=== PATIENT | female | born 1955 | race Caucasian/White ===

== ENCOUNTER 2023-11-10 14:02 | Outpatient (CLI) | payer MEDICARE, OTHER, SELFPAY | END 2023-11-10 14:03 | disposition home or self-care (01) | LOC: INJ CL 14:05 | PROVIDERS: PCP Internal Medicine; Visit Provider Family Medicine | DX: M17.12 Unilateral primary osteoarthritis, left knee (principal); M25.562 Pain in left knee | CPT/HCPCS: 64454 ==

== ENCOUNTER 2023-12-15 13:11 | Outpatient (CLI) | payer MEDICARE, OTHER, SELFPAY ==
--- OUTSIDE RECORDS SUMMARY | 2023-12-15 13:13 | XMS_ITS | Clinical Summary ---
Author Name Unknown Organization [facility] Address [place], [place] [address] Care Team Providers Care Topographical Drafter Name Role Phone Madeline Kraft DO Primary Care Provider [phone] Nicolette Linares INTERACTIVE DEVELOPER Unavailable Allergies Active Allergy Reactions Criticality Noted Date Comments Atenolol Chest Pain Medium 02/11/2012 Hymenoptera Allergenic Extract Hives High 09/29/2006 Bee Venom Protein (Honey Bee) Hives Low 03/22/2015 Ketamine Confusion,Sedation High 12/27/2020 Nitrofurantoin Nausea Only,Stomach Upset High 07/09/2022 Aspartame GI Upset,Headache High 09/29/2006 Saccharin Other - Describe In Comment Field Low 12/23/2018 Nausea Sucralose Other - Describe In Comment Field Low 12/23/2018 nausea Sulfa (Sulfonamide Antibiotics) Itching Low 03/03/2022 Venom-Honey Bee Hives Low 09/16/2023 Cholecalciferol (Vitamin D3) Myalgia High 12/14/2017 VITAMIN D CAUSING MUSCLE AND JOINT PAIN Medications Medication Sig Dispensed Refills Start Date End Date Status aspirin enteric coated 81 mg tablet Take 1 tablet by mouth once daily with a meal. 0 04/19/20 13 Active blood-glucose meterIndications: Diabetes mellitus without complication (HC) Dispense meter, test strips, lancets covered by pt ins. E11.65 NIDDM type II, uncontrolled - Test 3 times/day, Reason: High A1C 1 Device 0 06/07/20 18 Active blood sugar diagnostic (BLOOD GLUCOSE TEST) stripIndications: Diabetes mellitus without complication (HC) Test 3 times per day. Diabetes melliltus type II, uncontrolled. High A1c. 300 Each 3 06/07/20 18 Active lancetsIndication s:Diabetes mellitus without complication (HC) Test 3 times per day. DIABETES MELLILTUS TYPE II, uncontrolled. 300 Each 3 06/07/20 18 Active cyanocobalamin (VITAMIN B12) 500 mcg tablet Take 500 mcg by mouth once daily. 0 12/16/19 19 Active lidocaine 4% (ASPERCREME) 4 % patch Apply 1 Patch on dry, clean, hairless skin once daily if needed. 0 06/13/20 20 Active sennosides-docusa te (SENOKOT S) (8.6-50 mg) tablet Take 1 Tablet by mouth at bedtime. 0 10/19/20 20 Active acetaminophen (TYLENOL) 325 mg tablet Take 2 tablets by mouth every 6 hours if needed. Max acetaminophen dose: 4000mg in 24 hrs. 0 10/19/20 20 Active multivitamins with minerals tablet Take 1 Tablet by mouth once daily. 0 10/17/20 20 Active durable medical equipment (DME)Indications: Heel ulcer, left, limited to breakdown of skin (HC) podous boot, XL, Gipsy, Ref: [id number] 1 Each 0 04/11/20 21 Active amoxicillin (AMOXIL) 500 mg tabletIndications :Need for prophylactic antibiotic Take 4 tabs 1 hour prior to dental procedure. 4 Tablet 4 04/12/20 21 Active omeprazole 20 mg tablet Take 1 Tablet (20 mg) by mouth once daily before a meal. 0 06/21/20 21 Active magnesium oxide (MAG-OX 400) 400 mg tablet Take 400 mg by mouth 2 times daily. 60 Capsule 0 06/21/20 21 Active Biotin 1 mg tablet Take 1 mg by mouth once daily. 0 Active diclofenac topical (VOLTAREN) 1 % gel Apply 2 g topically to affected area(s) once daily if needed. 0 Active folic acid 1 mg tabletIndications :Chronic osteomyelitis of left femur (HC) TAKE 1 TABLET BY MOUTH EVERY DAY 90 Tablet 3 09/03/20 21 Active durable medical equipment (DME)Indications: Heel ulcer, left, limited to breakdown of skin (HC) PODOUS BOOT, XL, UNIVERSAL, REF: [id number] 1 Each 0 09/04/20 21 Active FreeStyle Corey 2 ReaderIndications :Diabetes mellitus without complication (HC) To be used to read blood sugars per linen checker's directions. 1 Each 0 09/26/20 21 Active FreeStyle Corey 2 SensorIndications :Diabetes mellitus without complication (HC) Change sensor every 14 days 6 Each 3 09/26/20 21 Active miscellaneous medical supply miscIndications:P ressure injury of buttock, stage 2, unspecified laterality (HC) As directed. Allan Jeffrey. Diagnosis: pressure ulcer of buttocks, stage 2. 1 Each 0 11/18/19 22 Active L.acid/B.animalis ,bifidum/FOS (PROBIOTIC COMPLEX ORAL) Take 1 Capsule by mouth at bedtime. 0 Active durable medical equipment (DME)Indications: Diabetic ulcer of left heel associated with type 2 diabetes mellitus, with fat layer exposed (HC) AIR SELECT, SHORT, MEDIUM, REF: [id number] 1 Each 0 03/13/20 22 Active furosemide (LASIX) 20 mg tabletIndications :Hypertension, unspecified type Take 3 Tablets (60 mg) by mouth every morning. 270 Tablet 2 07/24/20 22 Active fosfomycin tromethamine (MONUROL) 3 gram pack packetIndications :Multiple drug resistant organism (MDRO) culture positive,Complica abelardo UTI (urinary tract infection) Mix 1 packet (3 g) in liquid then take by mouth every 72 hours x3 doses. 3 Packet 0 01/15/20 23 Active Additional Information Patient not taking.Reported on 10/12/2023 Insulin [place], Disposable, (bd insulin pen needle uf mini) 31 gauge x /16Indications: Diabetes mellitus without complication (HC) Remove the 2 covers on the insulin pen needle before administering insulin dose. 100 Each 3 03/12/20 23 Active potassium chloride (K-TAB) 10 mEq extended-release tabletIndications :Hypokalemia Take 3 Tablets (30 mEq) by mouth once daily. 270 Tablet 2 03/12/20 23 Active gabapentin (NEURONTIN) 400 mg capsuleIndication s:Neuropathy TAKE 1 CAPSULE(400 MG) BY MOUTH in the morning, 1 cap in the afternoon and 2 caps at bedtime. 360 Capsule 3 03/12/20 23 Active estradioL (ESTRACE) 0.01% (0.1 mg/g) vaginal creamIndications: Recurrent UTI,Atrophic vaginitis Insert 1 g into the vagina every Thursday, Thursday and Thursday. 42.5 g 6 03/13/20 23 Active Additional Information Patient not taking.Reported on 10/12/2023 methenamine hippurate (HIPREX) 1 gram tabletIndications :Recurrent UTI,Atrophic vaginitis Take 1 Tablet (1 g) by mouth two times daily. 60 Tablet 6 03/12/20 23 Active alendronate (FOSAMAX) 70 mg tabletIndications :Osteopenia, unspecified location TAKE 1 TABLET(70 MG) BY MOUTH 1 TIME A WEEK IN THE MORNING ON AN EMPTY STOMACH AND WITH FULL GLASS OF WATER. DO NOT LIE DOWN FOR 1 HOUR 13 Tablet 2 04/11/20 23 Active vibegron (Gemtesa) 75 mg tabletIndications :Functional urinary incontinence Take 1 Tablet (75 mg) by mouth once daily. 30 Tablet 3 05/14/20 23 Active Additional Information Patient not taking.Reported on 10/12/2023 durable medical equipment (DME)Indications: Arthritis of left knee,Chronic pain of left knee,History of femur fracture,Sprain of medial collateral ligament of left knee, initial encounter Reddie knee brace, left knee, XXXL 1 Each 0 06/15/20 23 Active fluconazole (DIFLUCAN) 150 mg tabletIndications :Vaginal candidiasis Take 1 Tablet (150 mg) by mouth once daily. Repeat in 3 days if needed. 2 Tablet 0 07/15/20 23 Active nystatin (MYCOSTATIN) creamIndications: Intertriginous candidiasis Apply topically to affected area(s) two times daily. 30 g 2 07/15/20 23 Active metoprolol tartrate (LOPRESSOR) 25 mg tabletIndications :Hypertension TAKE 1/2 TABLET(12.5 MG) BY MOUTH TWICE DAILY 90 Tablet 1 09/06/20 23 Active dexAMETHasone (DECADRON) 6 mg tablet 0 09/03/20 23 Active traMADoL (ULTRAM) 50 mg tabletIndications :Chronic pain due to trauma TAKE 2 TABLETS(100 MG) BY MOUTH FOUR TIMES DAILY NEEDED FOR PAIN 180 Tablet 0 10/13/20 23 Active insulin degludec, U-200, (Tresiba FlexTouch U-200) 200 unit/mL (3 mL) penIndications:Di abetes mellitus without complication (HC) ADMINISTER 110 UNITS UNDER THE SKIN EVERY DAY 48 mL 1 10/13/20 23 Active metFORMIN (GLUCOPHAGE) 500 mg tabletIndications :Diabetes mellitus without complication (HC) Take 2 Tablets (1,000 mg) by mouth two times daily with meals. 360 Tablet 1 10/13/20 23 Active warfarin (COUMADIN) 5 mg tabletIndications :S/P AVR (aortic valve replacement),Anti coagulation monitoring, INR range 2-3 Take by mouth 2/1: Hold; 2/2: Hold; 2/3: Hold; 2/4: Hold; 2/5: Hold; Otherwise 5 mg every Mon, Wed, Fri; 7.5 mg all other days in the evening OR as directed 0 11/26/19 24 Active levothyroxine (SYNTHROID) 200 mcg tabletIndications :Hypothyroidism due to acquired atrophy of thyroid TAKE 1 TABLET(200 MCG) BY MOUTH BEFORE BREAKFAST 90 Tablet 0 12/07/19 24 Active levothyroxine (SYNTHROID) 50 mcg tabletIndications :Hypothyroidism due to acquired atrophy of thyroid TAKE 1 TABLET(50 MCG) BY MOUTH BEFORE BREAKFAST 90 Tablet 0 12/07/19 24 Active levothyroxine (SYNTHROID) 200 mcg tabletIndications :Hypothyroidism due to acquired atrophy of thyroid TAKE 1 TABLET(200 MCG) BY MOUTH BEFORE BREAKFAST 60 Tablet 0 09/06/20 23 024 Discontinued levothyroxine (SYNTHROID) 50 mcg tabletIndications :Hypothyroidism due to acquired atrophy of thyroid TAKE 1 TABLET(50 MCG) BY MOUTH BEFORE BREAKFAST 30 Tablet 0 09/22/20 23 024 Discontinued warfarin (COUMADIN) 5 mg tabletIndications :S/P AVR (aortic valve replacement),Anti coagulation monitoring, INR range 2-3 Take by mouth 5 mg (5 mg x 1) every Mon, Wed, Thu; 7.5 mg (5 mg x 1.5) all other days in the evening OR as directed 38 Tablet 0 11/12/19 24 024 Discontinued(Re order (E-cancel not sent)) Active Problems Problem Noted Date Diagnosed Date Left knee pain 03/24/2023 Diabetic ulcer of left heel associated with type 2 diabetes mellitus, with fat layer exposed 03/15/2023 Chemotherapy-induced neuropathy 10/21/2022 Multiple drug resistant organism (MDRO) culture positive 07/29/2022 Infection due to ESBL-producing Escherichia coli 07/29/2022 Allergy to multiple antibiotics 07/29/2022 Wound of foot 03/04/2022 Eczema of scalp 03/04/2022 Septic shock due to urinary tract infection 02/08 Fatty infiltration of liver 08/16/2021 Need for prophylactic antibiotic 04/12/2021 Iron deficiency anemia due to chronic blood loss 03/20/2021 Refusal of statin medication by patient 01/08/20 21 Severe sepsis 08/07/2020 UTI (urinary tract infection) 08/07/2020 Tachycardia 08/07/2020 Refused influenza vaccine 08/01/2019 Controlled substance agreement signed 05/02/2019 Overview: Tramadol 50 mg 2 tabs three times daily. #180 per month. Patient unable to leave a urine sample currently due to being in a wheelchair and with the COVID-19 outbreak. Will reevaluate in 2 months (April 2020). Medication side effects 07/05/2017 Breast cancer of upper-outer quadrant of right female breast 04/28/2017 Breast hematoma 04/28/2017 Osteopenia 04/28/2017 Neuropathy 08/16/2015 Abscess of right breast 06/21/2015 Lung nodule 06/13/2015 Humerus fracture 05/12/2015 Intractable pain 05/12/2015 C. difficile diarrhea 04/06/2015 Chronic anticoagulation 09/21/2014 Aortic valve prosthesis present 06/06/2013 Anticoagulation monitoring, INR range 2-3 2012 ACP (advance care planning) 05/06/2013 Overview: Patient has identified Health Care Agent(s): No formally appointed agents but identified spouse as primary concerned: Chip Vasquez [phone] Add Health Care Agents: No Patient has Advance Care Plan Documents (Health Care Directive, POLST): No, Health Care Packet given to patient. Patient has identified Specific Treatment Preferences: No Specific limits to treatment preferences NOT identified: ASSUME FULL TREATMENT. S/P AVR (aortic valve replacement) 05/05/2013 Overview: Aortic valve replacement; 21 mm, [employer] HP mechanical valve. BRYAN FERRER MD Elevated LFTs 10/22/2011 Vitamin D deficiency 08/21/2009 OA (osteoarthritis) of knee 08/07/2008 Encounter for long-term (current) use of other m edications 08/13/2007 Hypothyroidism due to acquired atrophy of thyroi d 09/29/2006 Hyperlipidemia 09/29/2006 Hypertension 09/29/2006 Obesity, unspecified 09/29/2006 DIABETES MELLITUS TYPE II A1C> 8 09/28/2006 Resolved Problems Problem Noted Date Diagnosed Date Resolved Date Chronic osteomyelitis of left femur 08/08/2020 10/21/2022 Acute type 1 respiratory failure 08/07/2020 10/21/2022 Malignant neoplasm of right breast 05/12/2015 04/28/2017 Hyperglycemia 05/12/2015 07/05/2017 Malignant neoplasm of upper- outer quadrant of female breast 04/12/2015 01/18/2018 Breast cancer, right breast 09/13/2014 04/28/2017 Fatigue 04/15/2014 05/12/2015 Breast cyst 05/20/2013 12/07/2014 Aortic stenosis, severe 04/17/201305/09 Heartburn 09/04/2012 05/12/2015 Henoch-Schonlein purpura 10/19/2010 Heart murmur 07/01/2010 05/20/2013 Trigger finger (acquired) 11/26/2008 Overview: R index Nosebleed 07/27/2008 11/10/2011 Hypopotassemia 08/20/2007 05/20/2013 Encounters Date Type Department Care Team Description 12/14/[address] [address] Madeline Kraft DO Anticoagulation (Annual re-enrollment ) 12/05/[address] [address] Madeline Kraft DO Refill Request (Levothyroxine, Levothyroxine) 11/26/2023 3:50 PM LICENSED MASSAGE PRACTITIONER [address] [address] Lab, [facility] 11/26/2023 Anticoagulation (warfarin) [address] [place] [address] 1, [facility] Anticoagulation 11/26/2023 Travel 11/19/2023 Telephone [facility] [address] [place] [address] Nicolette Linares NP Appointment 11/18/2023 Anticoagulation (warfarin) [facility] [address] [place] [address] Madeline Kraft DO Error-please disregard (opened in error) 11/18/2023 Telephone [facility] [address] [place] [address] Madeline Kraft DO Anticoagulation (12/15/2023 Coolief procedure Left knee ) 11/17/2023 4:10 PM LICENSED MASSAGE PRACTITIONER Orders Only [facility] [address] [place] [address] Lab, [facility] 11/17/2023 Anticoagulation (warfarin) [facility] [address] [place] [address] 1, [facility] Anticoagulation 11/17/2023 Travel 11/12/2023 Telephone [facility] [address] [place] [address] Madeline Kraft DO Anticoagulation (Due for INR check/Warfarin refill) 11/10/2023 3:00 PM LICENSED MASSAGE PRACTITIONER Procedure Only [facility] [address] [place] [address] Kamar Zamora MD Procedure (Left knee genicular nerve block ) 11/10/2023 Travel 10/13/2023 Telephone [facility] [address] [place] [address] Nicolette Linares NP Appointment 10/13/[address] [address] Kamar Zamora MD Appointment (Reschedule) 10/12/2023 2:30 PM LICENSED MASSAGE PRACTITIONER Phone Office Visit [facility] [address] [place] [phone] Nicolette Linares NP Follow Up (Malignant neoplasm of upper-outer quadrant of right female breast, unspecified estrogen receptor status) 10/12/2023 Travel 10/12/2023 Telephone [facility] [address] [place] [address] Nicolette Linares, NEGRITA Appointment 10/12/2023 Refill [facility] [address] [place] [address] Madeline Kraft, Refill Request (Metformin, Tramadol, Tresiba Flextouch U-200) 10/08/2023 2:57 PM LICENSED MASSAGE PRACTITIONER - 10/08/2023 11:59 PM LICENSED MASSAGE PRACTITIONER Hospital Encounter [facility] [address] [place] [address] Malignant neoplasm of upper-outer quadrant of right female breast, unspecified estrogen receptor status (HC) [C50.411 (ICD-10-CM)]; Iron deficiency anemia due to chronic blood loss; S/P AVR (aortic valve replacement); Anticoagulation monitoring, INR range 2-3 10/08/2023 Anticoagulation (warfarin) [facility] [address] [place] [phone] , [facility] Anticoagulation 10/08/2023 Travel 10/08/[address] [address] Kamar Zamora MD Medication Management (warfarin (COUMADIN) 5 mg tablet) 10/08/2023 Refill [facility] [address] [place] [phone] Madeline Kraft DO Refill Request (Tramadol, Tresiba Flextouch U-200) 09/25/2023 Telephone [facility] [address] [place] [address] Nicolette Linares NP Appointment 09/22/[address] [address] Madeline Kraft DO Refill Request (Levothyroxine) 09/21/[address] [address] Madeline Kraft DO Refill Request (Levothyroxine) 09/16/2023 4:10 PM LICENSED MASSAGE PRACTITIONER Orders Only [address] [address] Lab, [facility] 09/16/2023 3:30 PM LICENSED MASSAGE PRACTITIONER Nurse/Clinic Staff Only [address] [address] Nurse/Clinic Staff Only (Wound check) 09/16/2023 2:40 PM LICENSED MASSAGE PRACTITIONER Phone Office Visit [address] [address] Madeline Kraft DO Diabetes (Patient is in [place] and has lab appt this afternoon) 09/16/2023 Anticoagulation (warfarin) [address] [address] , [facility] Anticoagulation (Provider Visit) 09/16/2023 Travel 09/14/2023 Telephone [facility] [address] [place] [address] Kamar Zamora MD Injection (Medication) 09/14/[address] [address] Madeline Kraft DO Anticoagulation (Due for INR); Follow Up (patient return call ) from Last 3 Months Immunizations Name Administration Dates Next Due COVID-19 vaccine (Timeet 30mcg/0.3mL) P FMDV 10/30/2021,09/26/2021 Pneumococcal Poly,23-Valent (Pneumovax) 03/13/20,10/09/2000 TD, UNSPECIFIED 10/09/2000 Td (Age >=7 Years) 10/09/2000 Tdap 11/10/2011 Tuberculin (PPD) 09/22/2020,09/08/2020 Zoster (Shingrix-RZV, recombinant) 03/13/2022 Family History Medical History Relation Name Comments Heart Disease Father bypass surgery Cancer-breast Maternal Aunt Cancer Mother Other Mother diverticulitis Diabetes Other grandparents Other Sister 2 blood disorder TTP Good Health Son x3 Relation Name Status Comments Father Maternal Aunt Mother Other Sister 1 blood disorder TTP Sister 2 Son Social History Tobacco Use Types Packs/Day Years Used Date Smoking Tobacco: Never Smokeless Tobacco: Never Tobacco Cessation:Counseling Given: Yes Alcohol Use Standard Drinks/Week Comments Not Currently 0 (1 standard drink = 0.6 oz pur e alcohol) PHQ-2 Answer Date Recorded PHQ-2 TOTAL SCORE 4 12/27/2020 Social Connections Answer Date Recorded Frequency of Communication with Friends and Fami ly 0 03/12/2023 Financial Resource Strain Answer Date R ecorded Difficulty of Paying Living Expenses 3 03/12/2023 Difficulty of Paying Living Expenses Not on file 03/12/2023 Food Insecurity Answer Date Recorded Worried About Running Out of Food in the Last Ye ar 1 03/12/2023 Transportation Needs Answer Date Record ed Lack of Transportation (Medical) 1 03/12/2023 Housing Stability Answer Date Recorded Unable to Pay for Housing in the Last Year 1 03/12/2023 Sex and Gender Information Value Date Recorded Sex Assigned at Not on file Gender Identity Not on file Sexual Orientation Not on file Obstetrics History Para Term AB IAB SAB Ectopic Multiple Livin g Live Births 3 3 3 Date Outcome GA Total Labor Labor/2nd/3rd Weight Sex Delivery Anes PTL Marisabel A1 A5 Name Cl in Para M Para M Para M Last Filed Vital Signs Vital Sign Reading Time Taken Comments Blood Pressure 138/74 08/20/2023 2:13 PM CDT Pulse 90 08/20/2023 2:13 PM CDT Temperature 36.8 ??C (98.3 ??F) 08/20/2023 2:13 PM CD T Respiratory Rate 18 05/29/2023 3:16 PM CDT Oxygen Saturation 97% 08/20/2023 2:13 PM CDT Inhaled Oxygen Concentration - - Weight 113.9 kg (251 lb 3.2 oz) 03/03/2022 8:52 PM CDT bed scale Height 162.6 cm (5' 4) 09/26/2021 4:42 PM LICENSED MASSAGE PRACTITIONER Body Mass Index 43.12 09/26/2021 4:42 PM LICENSED MASSAGE PRACTITIONER Plan of Treatment Upcoming Encounters Date Type Department Care Team (Late st Contact Info) Description 12/15/2023 2:00 PM LICENSED MASSAGE PRACTITIONER Procedure Only [facility] [address] [place] [address] Kamar Zamora MD [address] [place] [address] Arrived 12/18/2023 4:00 PM LICENSED MASSAGE PRACTITIONER Office Visit [facility] [address] [place] [address] Madeline Kraft DO [address] [place] [address] 01/11/2024 4:00 PM LICENSED MASSAGE PRACTITIONER Appointment [facility] [address] [place] [address] 01/13/2024 3:15 PM LICENSED MASSAGE PRACTITIONER Office Visit [facility] [address] [place] [address] Nicolette Linares, INTERACTIVE DEVELOPER [address] [place] [address] Health Maintenance Due Date Last Done Comments Colonoscopy through age 75 2002 BMI (ht and wt on same day) for age 18+ 05/03/2021 05/03/2020, 08/01/2019, 01/26/2019, Additional history exists Tetanus booster 11/10/2021 11/10/2011, 12/2011, 10/10/2011 (Declined), Additional history exists COVID-19 vaccine series (3 - Pfizer risk series) 11/27/2021 10/30/2021, 09/26/2021 Depression screening for age 12+ 12/31/2021 12/31/2020, 12/31/2020, 12/31/2020, Additional history exists DEXA/DXA scan for age 65+ 04/26/20222018, 04/27/2017, 04/09/2015 Medicare Wellness for age 65+ 2022 Zoster (shingles) series for age 50+ (2 of 2) 05/08/2022 03/13/2022 Pneumococcal series for age 65+ (3 of 3 - PCV) 03/13/2023 03/13/2022, 10/09/2000 Influenza for age 65+ 07/10/2023 Mammogram for age 45-75 05/15/2024 05/15/20, 05/28/2022, 05/07/2022, Additional history exists Lipids for age 45-75 09/16/2028 09/16/2023, 10/20/2022, 07/22/2022, Additional history exists Tdap Completed 11/10/2011 Hepatitis C screening for ag e 18-79 Completed 09/26/2021 Medical Devices Implanted Type Area Track Grinder Operator Device Identifier Shelf Expiration Date Model / Serial / Lot Anw Hh [id number] Implanted:Qty: 1 on 05/05/2013 at [facility] [employer] 08/16/2014 [id number] # / [id number] / [id number] - [id number] Implanted:Qty: 1 on 10/24/2014 by Victor M Olivares MD at [facility] [employer] 04/09/2016 [id number] / / [id number] Description:Power Port Procedures Procedure Name Priority Date/Time Associated Diagnosis Comments CBC WITH AUTO DIFFERENTIAL Routine 11/26/2023 3:26 PM LICENSED MASSAGE PRACTITIONER Iron deficiency anemia due to chronic blood loss IRON PLUS IRON BINDING CAP Routine 11/26/2023 3:26 PM LICENSED MASSAGE PRACTITIONER Iron deficiency anemia due to chronic blood loss FERRITIN Routine 11/26/2023 3:26 PM LICENSED MASSAGE PRACTITIONER Iron deficiency anemia due to chronic blood loss CBC WITH AUTO DIFFERENTIAL Routine 11/26/2023 3:26 PM LICENSED MASSAGE PRACTITIONER Iron deficiency anemia due to chronic blood loss PROTIME-INR STAT 11/26/2023 3:26 PM LICENSED MASSAGE PRACTITIONER S/P AVR (aortic valve replacement) Anticoagulation monitoring, INR range 2-3 PROTIME-INR STAT 11/17/2023 3:53 PM LICENSED MASSAGE PRACTITIONER S/P AVR (aortic valve replacement) Anticoagulation monitoring, INR range 2-3 RED CELL MORPHOLOGY Timed 10/08/2023 3 :07 PM LICENSED MASSAGE PRACTITIONER Malignant neoplasm of upper-outer quadrant of right female breast, unspecified estrogen receptor status (HC) [C50.411 (ICD-10-CM)] Iron deficiency anemia due to chronic blood loss PLATELET ESTIMATE Timed 10/08/2023 3:0 7 PM LICENSED MASSAGE PRACTITIONER Malignant neoplasm of upper-outer quadrant of right female breast, unspecified estrogen receptor status (HC) [C50.411 (ICD-10-CM)] Iron deficiency anemia due to chronic blood loss PROTIME-INR STAT 10/08/2023 3:07 PM LICENSED MASSAGE PRACTITIONER S/P AVR (aortic valve replacement) Anticoagulation monitoring, INR range 2-3 CBC WITH AUTO DIFFERENTIAL Timed 10/08/2023 3:07 PM LICENSED MASSAGE PRACTITIONER Malignant neoplasm of upper-outer quadrant of right female breast, unspecified estrogen receptor status (HC) [C50.411 (ICD-10-CM)] Iron deficiency anemia due to chronic blood loss IRON PLUS IRON BINDING CAP Today 10/08/2023 3:07 PM LICENSED MASSAGE PRACTITIONER Malignant neoplasm of upper-outer quadrant of right female breast, unspecified estrogen receptor status (HC) [C50.411 (ICD-10-CM)] Iron deficiency anemia due to chronic blood loss RETICULOCYTES Today 10/08/2023 3:07 PM LICENSED MASSAGE PRACTITIONER Malignant neoplasm of upper-outer quadrant of right female breast, unspecified estrogen receptor status (HC) [C50.411 (ICD-10-CM)] Iron deficiency anemia due to chronic blood loss FERRITIN Today 10/08/2023 3:07 PM LICENSED MASSAGE PRACTITIONER Malignant neoplasm of upper-outer quadrant of right female breast, unspecified estrogen receptor status (HC) [C50.411 (ICD-10-CM)] Iron deficiency anemia due to chronic blood loss COMP METABOLIC PANEL Today 10/08/2023 3:07 PM LICENSED MASSAGE PRACTITIONER Malignant neoplasm of upper-outer quadrant of right female breast, unspecified estrogen receptor status (HC) [C50.411 (ICD-10-CM)] Iron deficiency anemia due to chronic blood loss CBC WITH AUTO DIFFERENTIAL Today 10/08/2023 3:07 PM LICENSED MASSAGE PRACTITIONER Malignant neoplasm of upper-outer quadrant of right female breast, unspecified estrogen receptor status (HC) [C50.411 (ICD-10-CM)] Iron deficiency anemia due to chronic blood loss RED CELL MORPHOLOGY Routine 09/16/2023 4 :59 PM LICENSED MASSAGE PRACTITIONER DIABETES MELLITUS TYPE II A1C> 8 PLATELET ESTIMATE Routine 09/16/2023 4:5 9 PM LICENSED MASSAGE PRACTITIONER DIABETES MELLITUS TYPE II A1C> 8 CBC WITH AUTO DIFFERENTIAL Routine 09/16/2023 4:59 PM LICENSED MASSAGE PRACTITIONER DIABETES MELLITUS TYPE II A1C> 8 LIPID PANEL W REFLEX MEASURED LDL Routine 09/16/2023 4:59 PM LICENSED MASSAGE PRACTITIONER Hyperlipidemia, unspecified hyperlipidemia type TSH WITH REFLEX Routine 09/16/2023 4:59 PM LICENSED MASSAGE PRACTITIONER Hypothyroidism due to acquired atrophy of thyroid COMP METABOLIC PANEL Routine 09/16/2023 4:59 PM LICENSED MASSAGE PRACTITIONER Hypertension DIABETES MELLITUS TYPE II A1C> 8 CBC WITH AUTO DIFFERENTIAL Routine 09/16/2023 4:59 PM LICENSED MASSAGE PRACTITIONER DIABETES MELLITUS TYPE II A1C> 8 HEMOGLOBIN A1C Routine 09/16/2023 4:59 PM LICENSED MASSAGE PRACTITIONER DIABETES MELLITUS TYPE II A1C> 8 PROTIME-INR STAT 09/16/2023 4:59 PM LICENSED MASSAGE PRACTITIONER S/P AVR (aortic valve replacement) Anticoagulation monitoring, INR range 2-3 from Last 3 Months Results * (ABNORMAL) CBC WITH AUTO DIFFERENTIAL (11/26/2023 3:26 PM [facility]) Only the most recent of3 resultswithin the time period is included. WHITE BLOOD COUNT 9.5 4.5 - 11.0 thou/cu mm 11/26/2023 3:38 PM [facility] RED BLOOD COUNT 4.86 4.00 - 5.20 mil/cu mm 11/26/2023 3:38 PM [facility] HEMOGLOBIN 10.3(L) 12.0 - 16.0 g/dL 11/26/2023 3:38 PM [facility] HEMATOCRIT 34.3 33.0 - 51.0 % 11/26/2023 3:38 PM [facility] MCV 71(L) 80 - 100 fL 11/26/2023 3:38 PM [facility] MCH 21.2(L) 26.0 - 34.0 pg 11/26/2023 3:38 PM [facility] MCHC 30.0(L) 32.0 - 36.0 g/dL 11/26/2023 3:38 PM [facility] RDW 18.5(H) 11.5 - 15.5 % 11/26/2023 3:38 PM [facility] PLATELET COUNT 147 140 - 440 thou/cu mm 11/26/2023 3:38 PM [facility] MPV 10.0 6.5 - 11.0 fL 11/26/2023 3:38 PM [facility] % NEUT 78.5 % 11/26/2023 3:38 PM [facility] % LYMPH 13.0 % 11/26/2023 3:38 PM [facility] % MONO 7.3 % 11/26/2023 3:38 PM [facility] % EOS 0.9 % 11/26/2023 3:38 PM [facility] % BASO 0.3 % 11/26/2023 3:38 PM [facility] ABSOLUTE NEUTROPHILS 7.5(H) 1.7 - 7.0 thou/cu mm 11/26/2023 3:38 PM [facility] ABSOLUTE LYMPHOCYTES 1.2 0.9 - 2.9 thou/cu mm 11/26/2023 3:38 PM [facility] ABSOLUTE MONOCYTES 0.7 <0.9 thou/cu mm 11/26/2023 3:38 PM [facility] ABSOLUTE EOSINOPHILS 0.1 <0.5 thou/cu mm 11/26/2023 3:38 PM [facility] ABSOLUTE BASOPHILS 0.0 <0.3 thou/cu mm 11/26/2023 3:38 PM [facility] Blood BLOOD SPECIMEN / Unknown Venipuncture / Unknown 11/26/2023 3:26 PM LICENSED MASSAGE PRACTITIONER 11/26/2023 3:27 PM [facility] - 11/26/2023 3:38 PM LICENSED MASSAGE PRACTITIONER This procedure was originally ordered at [facility]. Nicolette Linares NP HEMATOLOGY [facility] [address] [place], [place] [id number] * (ABNORMAL) IRON PLUS IRON BINDING CAP (11/26/2023 3:26 PM LICENSED MASSAGE PRACTITIONER) Only the most recent of2 resultswithin the time period is included. IRON 23(L) 37 - 145 ug/dL 11/27/2023 2:04 PM [facility] UIBC (UNSATURATED) 403(H) 112 - 347 ug/dL 11/27/2023 2:04 PM [facility] IRON BINDING CAPACITY 426(H) 250 - 400 ug/dL 11/27/2023 2:04 PM [facility] IRON,% SATURATION 5(L) 14 - 50 % 11/27/2023 2:04 PM [facility] Blood BLOOD SPECIMEN / Unknown Venipuncture / Unknown 11/26/2023 3:26 PM LICENSED MASSAGE PRACTITIONER 11/26/2023 3:27 PM LICENSED MASSAGE PRACTITIONER Nicolette Linares NP CHEMISTRY Performing Organization Address [facility]/ZIP Co de Phone Number [facility] [address] [place] [address], [place] * (ABNORMAL) PROTIME-INR (11/26/2023 3:26 PM LICENSED MASSAGE PRACTITIONER) Only the most recent of4 resultswithin the time period is included. INR 2.4(H) <1.3 11/26/2023 4:00 PM LICENSED MASSAGE PRACTITIONER [facility] PROTIME 26.6(H) 10.3 - 12.3 sec 11/26/2023 4:00 PM LICENSED MASSAGE PRACTITIONER [facility] Blood BLOOD SPECIMEN / Unknown Venipuncture / Unknown 11/26/2023 3:26 PM LICENSED MASSAGE PRACTITIONER 11/26/2023 3:27 PM LICENSED MASSAGE PRACTITIONER Narrative [facility] - 11/26/2023 4:00 PM LICENSED MASSAGE PRACTITIONER ?Therapeutic Range 2.0-3.0 for most anticoagulated patients 2.5-3.5 or 4.0 for high risk patients The INR is only used for patients on stable oral anticoagulant therapy. It makes no significant contribution to the diagnosis or treatment of patients whose Protime is prolonged for other reasons. INR results are increased when heparin levels exceed 1.0 U/mL, which corresponds to an aPTT >125 seconds if the patient is on UFH. Madeline Kraft DO HEMATOLOGY Performing Organization Address [facility]/ZIP Co de Phone Number [facility] [address] [place] [address] * (ABNORMAL) FERRITIN (11/26/2023 3:26 PM LICENSED MASSAGE PRACTITIONER) Only the most recent of2 resultswithin the time period is included. FERRITIN 13.5(L) 15.0 - 150.0 ng/mL 11/27/2023 1:29 PM LICENSED MASSAGE PRACTITIONER [facility] Blood BLOOD SPECIMEN / Unknown Venipuncture / Unknown 11/26/2023 3:26 PM LICENSED MASSAGE PRACTITIONER 11/26/2023 3:27 PM LICENSED MASSAGE PRACTITIONER Nicolette Linares NP CHEMISTRY [facility] [address] [place] [address], * (ABNORMAL) RED CELL MORPHOLOGY (10/08/2023 3:07 PM LICENSED MASSAGE PRACTITIONER) Only the most recent of2 resultswithin the time period is included. ELLIPTOCYTES Few 10/08/2023 4:00 PM LICENSED MASSAGE PRACTITIONER [facility] POLYCHROMASIA Slight 10/08/2023 4:00 PM LICENSED MASSAGE PRACTITIONER [facility] TARGET CELLS Few 10/08/2023 4:00 PM [facility] RBC COMMENT Present(A) RBC morphology appears normal, RBC morphology within normal limits for newborns. 10/08/2023 4:00 PM [facility] Blood BLOOD SPECIMEN / Unknown Venipuncture / Unknown 10/08/2023 3:07 PM LICENSED MASSAGE PRACTITIONER 10/08/2023 3:07 PM [facility] - 10/08/2023 4:00 PM LICENSED MASSAGE PRACTITIONER This procedure was originally ordered at [facility]. This procedure was originally ordered at [facility]. This procedure was originally ordered at [facility]. Nicolette Linares NP HEMATOLOGY Performing Organization Address City/[facility]/ZIP Co de Phone Number [facility] [address] [place] [address] * PLATELET ESTIMATE (10/08/2023 3:07 PM LICENSED MASSAGE PRACTITIONER) Only the most recent of2 resultswithin the time period is included. PLATELET ESTIMATE Adequate Adequate, No estimate 10/08/2023 4:00 PM [facility] Blood BLOOD SPECIMEN / Unknown Venipuncture / Unknown 10/08/2023 3:07 PM LICENSED MASSAGE PRACTITIONER 10/08/2023 3:07 PM LICENSED MASSAGE PRACTITIONER [facility] - 10/08/2023 4:00 PM LICENSED MASSAGE PRACTITIONER This procedure was originally ordered at [facility]. This procedure was originally ordered at [facility]. This procedure was originally ordered at [facility]. Nicolette Linares NP HEMATOLOGY Performing Organization Address [facility] Co de Phone Number [facility] [address] [place] [address] * (ABNORMAL) RETICULOCYTES (10/08/2023 3:07 PM LICENSED MASSAGE PRACTITIONER) Pathologist [facility] RETIC% 1.8(H) 0.5 - 1.5 % 10/09/2023 4:02 PM LICENSED MASSAGE PRACTITIONER [facility] RETIC (ABSOLUTE) 0.08 0.03 - 0.08 mil/cu mm 10/09/2023 4:02 PM LICENSED MASSAGE PRACTITIONER [facility] Blood BLOOD SPECIMEN / Unknown Venipuncture / Unknown 10/08/2023 3:07 PM LICENSED MASSAGE PRACTITIONER 10/08/2023 3:07 PM LICENSED MASSAGE PRACTITIONER [facility] - 10/09/2023 4:02 PM LICENSED MASSAGE PRACTITIONER This procedure was originally ordered at [facility]. Nicolette Linares NP HEMATOLOGY Performing Organization Address [facility] Co de Phone Number [facility] [address] [place] [address], * (ABNORMAL) COMP METABOLIC PANEL (10/08/2023 3:07 PM LICENSED MASSAGE PRACTITIONER) Only the most recent of2 resultswithin the time period is included. SODIUM 138 136 - 145 mmol/L 10/08/2023 3:33 PM [facility] POTASSIUM 3.9 3.5 - 5.1 mmol/L 10/08/2023 3:33 PM [facility] CHLORIDE 102 98 - 107 mmol/L 10/08/2023 3:33 PM [facility] CO2,TOTAL 27 22 - 29 mmol/L 10/08/2023 3:33 PM [facility] ANION GAP 9 5 - 18 10/08/2023 3:33 PM [facility] GLUCOSE 146(H) 70 - 99 mg/dL 10/08/2023 3:33 PM [facility] CALCIUM 9.2 8.8 - 10.2 mg/dL 10/08/2023 3:33 PM [facility] BUN 7(L) 8 - 23 mg/dL 10/08/2023 3:33 PM [facility] CREATININE 0.64 0.50 - 0.90 mg/dL 10/08/2023 3:33 PM [facility] BUN/CREAT RATIO 11 10 - 20 3:33 PM [facility] eGFR >90 >90 mL/min/1.7 3m2 10/08/2023 3:33 PM [facility] Comment:As of 2022, eG FR is calculated by the CKD-EPI creatinine equation without race adjustment. ??eGFR can be influenced by muscle mass, exercise, and diet. ??The reported eGFR is an estimation only and is only applicable if the renal function is stable. ALBUMIN 3.6(L) 4.0 - 4.9 g/dL 10/08/2023 3:33 PM [facility] PROTEIN,TOTAL 7.6 6.0 - 8.0 g/dL 10/08/2023 3:33 PM [facility] BILIRUBIN,TOTAL 0.8 0.0 - 1.2 mg/dL 10/08/2023 3:33 PM [facility] ALK PHOSPHATASE 152(H) 35 - 104 IU/L 10/08/2023 3:33 PM [facility] ALT (SGPT) 15 10 - 35 IU/L 10/08/2023 3:33 PM [facility] AST (SGOT) 33 10 - 35 IU/L 10/08/2023 3:33 PM [facility] Blood BLOOD SPECIMEN / Unknown Venipuncture / Unknown 10/08/2023 3:07 PM LICENSED MASSAGE PRACTITIONER 10/08/2023 3:07 PM LICENSED MASSAGE PRACTITIONER Nicolette Linares NP CHEMISTRY Performing Organization Address [facility] Co de Phone Number [facility] [address] [place] [address] * TSH WITH REFLEX (09/16/2023 4:59 PM LICENSED MASSAGE PRACTITIONER) TSH 2.38 0.27 - 4.20 uIU/mL 09/16/2023 8:21 PM [facility] Blood BLOOD SPECIMEN / Unknown Butterfly / Unknown 09/16/2023 4:59 PM LICENSED MASSAGE PRACTITIONER 09/16/2023 5:06 PM LICENSED MASSAGE PRACTITIONER [facility] LAB[facility]ATORY - 09/16/2023 8:21 PM LICENSED MASSAGE PRACTITIONER In Adults, TSH values between 5.00 and 10.00 uIU/ml do not necessarily indicate the presence of Hypothyroidism. Correlation with clinical findings such as presence of goiter and/or Thyroperoxidase (TPO) Antibody may be helpful. For more information please refer to JAYNE 2004; 291: [phone]. Madeline Kraft DO CHEMISTRY Performing Organization Address [facility] Co de Phone Number [facility] [address] [place] [address] * (ABNORMAL) LIPID PANEL W REFLEX MEASURED LDL (09/16/2023 4:59 PM LICENSED MASSAGE PRACTITIONER) CHOLESTEROL,TOTAL 214(H) 100 - 199 mg/dL 09/16/2023 8:21 PM [facility] Comment: Cholesterol, Total Reference Ranges Desirable <200 mg/dL Borderline 200-239 mg/dL High >=240 mg/dL TRIGLYCERIDES 122 <150 mg/dL 09/16/2023 8:21 PM [facility] HDL CHOLESTEROL 54 >40 mg/dL 8:21 PM [facility] NON-HDL CHOLESTEROL 160(H) <145 mg/dl 09/16/2023 8:21 PM [facility] CHOL/HDL RATIO 3.96 <4.50 09/16/2023 8:21 PM [facility] LDL CHOLESTEROL 136(H) <=130 mg/dL 09/16/2023 8:21 PM [facility] VLDL CHOLESTEROL 24 <=30 mg/dL 09/16/2023 8:21 PM LICENSED MASSAGE PRACTITIONER [facility] PROVIDER ORDERED STATUS RANDOM 09/16/2023 8:21 PM LICENSED MASSAGE PRACTITIONER [facility] Blood BLOOD SPECIMEN / Unknown Butterfly / Unknown 09/16/2023 4:59 PM LICENSED MASSAGE PRACTITIONER 09/16/2023 5:06 PM LICENSED MASSAGE PRACTITIONER Madeline Kraft DO CHEMISTRY Performing Organization Address [facility] de Phone Number [facility] [address] [place] [address] * (ABNORMAL) HEMOGLOBIN A1C MONITORING (POCT) (09/16/2023 4:59 PM LICENSED MASSAGE PRACTITIONER) HEMOGLOBIN A1C MONITORING (POCT) 8.3(H) <=6.4 % 09/16/2023 5:16 PM LICENSED MASSAGE PRACTITIONER [facility] Blood BLOOD SPECIMEN / Unknown Butterfly / Unknown 09/16/2023 4:59 PM LICENSED MASSAGE PRACTITIONER 09/16/2023 5:06 PM LICENSED MASSAGE PRACTITIONER Narrative [facility] - 09/16/2023 5:16 PM LICENSED MASSAGE PRACTITIONER ? (<=6.9%) ? Indicates good control ? (7.0% to 7.9%) ? Indicates fair control ? (>=8.0%) ? Indicates poor control ?? NOTE: ??These thresholds are guidelines and ?individual targets may vary. Falsely low levels may be seen with: Recent Transfusion, Recent Significant Blood Loss, Hemolytic Diseases, or Falsely elevated levels may be seen with: Untreated Anemias, Splenectomy ? Madeline Kraft DO CHEMISTRY Performing Organization Address [facility] Co de Phone Number [facility] [address] [place] [address] from Last 3 Months Additional Health Concerns Infection Onset Date Last Indicated [id number] Comment:Order contact precautions. Order consult to Infection Prevention to determine if patient may be removed from precautions. +MDRO 11/27/2021, ESBL+E. coli 11/27/2021 12/30/2022 Advance Directives Latest Code Status on File Code Status Date Activated Date Inactivated Comments Full Code 03/03/2022 9:56 PM 03/06/2022 3:51 PM Question Answer Comments Code Status Discussion: Reviewed Preferences Code Status History Code Status Date Activated Date Inactivated Comments Full Code 04/01/2021 7:47 AM 04/01/2021 2:38 PM Question Answer Comments Code Status Discussion: Discussed Full Code 08/07/2020 1:29 AM 08/09/2020 4:54 PM Question Answer Comments Code Status Discussion: Per Existing Order Full Code 05/14/2016 12:05 PM 05/14/2016 2:49 PM Full Code 05/14/2016 10:59 AM 05/14/2016 12:05 PM Care Teams Topographical Drafter Relationship Specialty Start Date End Date Madeline Kraft DO [address] [place] [address] PCP - General Internal Medicine 11/03/17 Nicolette Linares, INTERACTIVE DEVELOPER [address] [place] [address] Oncology Nurse Practitioner 06/12/20
[2023-12-15 14:58] LABS: INR 1.46 (0.91-1.10); Prothrombin Time 18.8 Seconds
== END 2023-12-15 13:12 | disposition home or self-care (01) ==
LOC: INJ CL 13:12
PROVIDERS: PCP Internal Medicine; Visit Provider Family Medicine
DX: M17.12 Unilateral primary osteoarthritis, left knee (principal); M25.562 Pain in left knee; G89.29 Other chronic pain
CPT/HCPCS: 36415; 64624; 85610; J2250; J2405; J3010